=== PATIENT | male | born 1970 | race Caucasian/White ===

== ENCOUNTER 2022-02-05 22:11 | Emergency (ER) | payer MEDICAID, MEDICARE ==
[2022-02-05] MEDS ORDERED: Sodium Chloride 0.9% 10 ML Syringe FLUSH PRN (22:34)
== END 2022-02-06 00:21 | disposition home or self-care (01) ==
LOC: JD.ED 22:11
DX: R07.89 Other chest pain (principal)
CPT/HCPCS: 36415; 71045; 80053; 84484; 85025; 93005; 99285; J3490